=== PATIENT | female | born 1960 | race Caucasian/White ===

== ENCOUNTER → 2016-11-10 | Outpatient (CLI) | payer OTHER | LOC: BRMIMAGING 09:11 | PROVIDERS: ATTEND Internal Medicine | DX: M15.4 Erosive (osteo)arthritis (principal) | CPT/HCPCS: 73130-PO; 73630-PO ==

== ENCOUNTER → 2018-09-19 | Outpatient (CLI) | payer BC, OTHER | LOC: BRMIMAGING 11:37 ==